=== PATIENT | male | born 1990 | race Caucasian/White ===

== ENCOUNTER → 2020-07-11 | Outpatient (CLI) | payer BC | LOC: LAB 14:12 | PROVIDERS: ATTEND Orthopaedic Surgery | DX: Z01.812 Encounter for preprocedural laboratory examination (principal); Z20.822 Contact with and (suspected) exposure to COVID-19; M94.261 Chondromalacia, right knee; M23.41 Loose body in knee, right knee | CPT/HCPCS: U0003; U0005 ==

== ENCOUNTER → 2020-07-19 | Outpatient (CLI) | payer BC ==
[~2020-07-19] MED LIST: HYDR-2765 PO; MELA3TAB43 PO; NAPR220T70 PO; PROM25TA10 PO
== END ==
LOC: LAB 14:23
PROVIDERS: ATTEND Orthopaedic Surgery
DX: Z01.812 Encounter for preprocedural laboratory examination (principal); M23.41 Loose body in knee, right knee; M94.261 Chondromalacia, right knee; Z20.822 Contact with and (suspected) exposure to COVID-19
CPT/HCPCS: U0003; U0005

== ENCOUNTER → 2020-07-22 | Day surgery (SDC) | payer BC ==
[~2020-07-22] VITALS: Ht 188 cm; Wt 124.7 kg
[~2020-07-22] MED LIST changes: +BUPIVACAINE-EPI 0.25% 30 ML VIAL KIT. ONE; +DEXAMETHASONE SOD PHOS 4 MG/ML VIAL ONE; +EPINEPHrine VIAL 30 MG/30 ML VIAL ONE; +HYDROcodone/APAP 7.5/325MG 1 TAB TABLET ONE; +HYDROcodone/APAP 7.5/325MG 1 TAB TABLET PO PRN; +HYDROmorphone 2 MG/ML VIAL IVP PRN; +HYDROmorphone 2 MG/ML VIAL ONE; +IV RINGERS,LACTATED 1000ML 1,000 ML IV SCH; +LIDOCAINE 2% PF 5 ML VIAL. ONE; +MIDAZOLAM HCL/PF 2 MG/2 ML VIAL. ONE; +MORPHINE SULFATE 2 MG/ML VIAL. IVP PRN; +ONDANSETRON PF 4 MG/2 ML VIAL. ONE; +PROCHLORPERAZINE 10 MG/2 ML VIAL. IVP PRN; +PROPOFOL 10 MG/ML (20ML) VIAL. IV ONE; +SEVOFLURANE 61 TO 120 MINUTES. IH ONE; +ceFAZolin SODIUM 3 GM in IV DEXTROSE 5% 100ML 100 ML IV PRN; +fentaNYL PF VIAL 100 MCG/2 ML VIAL IVP PRN; +fentaNYL PF VIAL 100 MCG/2 ML VIAL ONE
--- NOTE | 2020-07-22 09:02 | PDOC4 ---
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 Exam and MRI are consistent with chondromalacia and possible loose bodies. We talked about the risks and benefits of proceeding with an arthroscopic procedure. We talked about potential risks of ongoing pain, progressive arthritis, bleeding, infection, blood clots, failure to locate loose bodies, or other potential surgical or anesthetic complications. All of the patient's questions about surgery were answered and they desired to proceed. Written consent was obtained. Description of Operation: The patient was identified in the preoperative holding area. The correct right knee was marked by me. The patient was taken to the operating room, where a general anesthetic was used. Preoperative antibiotics were given intravenously. A time-out procedure was performed. A tourniquet was placed on the upper thigh. Local anesthetic 20 mL of 0.25% bupivacaine was injected using sterile technique into the knee joint. The limb was prepared circumferentially with ChloraPrep solution and sterile waterproof arthroscopy drapes were applied. The limb was exsanguinated with an Esmarch bandage and the tourniquet was inflated. Lateral and medial arthroscopy portals were established. The medial meniscus was normal and stable to probing. The medial tibiofemoral joint showed normal articular surfaces so no chondroplasty was required. The intercondylar notch was free of loose bodies, and the ACL was intact. The lateral tibiofemoral joint was examined. The lateral meniscus was normal. The lateral articular surfaces showed chondromalacia [place] grade I, so no chondroplasty was required. 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 Shaving chondroplasty was performed but there were only a very few unstable fibers. There is some exposed bone, but no bony defect. The area is 12 mm in width and 25 mm anterior to posterior. Evaluation of this lesion was done regarding size and depth for planning of potential future reconstruction procedures. Patellar tracking was assessed arthroscopically, at the patella tilt appears normal. The patellar cartilage is normal. Systematic evaluation of the entire joint was made for the loose bodies mentioned in the MRI report, specifically looking carefully in the lateral gu tter. I evaluated the suprapatellar pouch, medial and lateral gutters, and the intercondylar notch. I also passed the arthroscope deep to the cruciate ligaments, and examined the posterior compartment. I could not find any of the bony loose bodies suspected on the MRI. My impression is these densities seen on the MRI are buried in soft tissue of the lateral capsule and are not actually "loose. A few small chondral fragments were noted throughout the joint which were irrigated with the shaver, but there was no 1.1 cm body in the joint. Finally, the patient had severe restriction of motion preoperatively, with about a 30 degree flexion contracture. I was concerned that this was a mechanical blockage from a loose body, so I did not force the range of motion preoperatively. Once he was anesthetized, the knee had free range of motion and there is no mechanical blockage. Ideally with the irrigation, chondroplasty removal of the chondral fragmentation and range of motion of the knee intraoperatively he will be able to progress his range of motion. Copious irrigation was used to drain all chondral fragments, and the knee was drained of fluid. The portals were closed with #3-0 Prolene interrupted sutures. Additional local anesthetic, 30 mL of 0.25% bupivacaine with epinephrine was injected. A bulky sterile dressing was applied and the tourniquet was released. Needle and sponge counts were correct and there were no apparent complications. RICA KWAN MD Jul 22, 2020 09:02
[2020-07-22 09:40] VITALS: BP 154/89
== END | disposition home or self-care (01) ==
LOC: SURG 05:48
PROVIDERS: ATTEND Orthopaedic Surgery
DX: M94.261 Chondromalacia, right knee (principal); M23.41 Loose body in knee, right knee; F41.9 Anxiety disorder, unspecified; Z87.891 Personal history of nicotine dependence; Z79.899 Other long term (current) drug therapy; Z98.890 Other specified postprocedural states
CPT/HCPCS: 29877; A4930; J0171; J1100; J1170; J2405; J2704; J3010; J2250